=== PATIENT | male | born 1940 | race Caucasian/White ===

== ENCOUNTER 2017-04-09 09:37 | Inpatient (IN) | payer OTHER, MEDICARE ==
[~2017-04-09] VITALS: Ht 175.3 cm; Wt 85.3 kg
--- NOTE | 2017-04-09 09:57 | NUR ---
Pt BIB private Ambulance from [facility], reports pt on 5150 hold for [facility], was seeing hallucinations. Pt has no complaints, denies SI, HI, halucinations, but states he has generalized anger and is depressed.
[2017-04-09] MEDS ORDERED: SPIR25TA4 PO (11:13)
[2017-04-09] MEDS ORDERED: FINA5TAB3 PO (11:13)
[2017-04-09] MEDS ORDERED: CARB PO (11:13)
[2017-04-09] MEDS ORDERED: LEVO PO (11:13)
[2017-04-09] MEDS ORDERED: CARB-93 PO (11:13)
[2017-04-09] MEDS ORDERED: PRAM0.129 PO (11:13)
--- NOTE | 2017-04-09 11:50 | NUR ---
Gave report to Berto
[2017-04-09 13:00] VITALS: BP 131/60
[2017-04-09] MEDS ORDERED: LORAZEPAM 0.5 MG TABLET PO PRN (13:30)
[2017-04-09] MEDS ORDERED: MAGNESIUM HYDROXIDE 30 ML LIQUID UDC PO PRN (13:30)
[2017-04-09] MEDS ORDERED: ACETAMINOPHEN 325 MG TABLET PO PRN (13:30)
[2017-04-09] MEDS ORDERED: ZOLPIDEM 5 MG TABLET PO PRN (13:30)
[2017-04-09] MEDS ORDERED: MAG HYDROX/AL HYDROX/SIMETH 30 ML LIQUID UDC PO PRN (13:30)
[2017-04-09 16:00] VITALS: BP 158/80
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
[2017-04-09 20:37] VITALS: BP 125/67
[2017-04-09] MEDS: CARBIDOPA/LEVODOPA 25-100MG TABLET PO SCH (20:38)
[2017-04-10 07:30] VITALS: BP 139/77
[2017-04-10 08:00] LABS: BASOPHILS # (AUTO) 0.1 K/uL (0.0-8.0); BASOPHILS % (AUTO) 0.6 % (0.0-2.0); EOSINOPHILS # (AUTO) 0.1 K/uL (0.0-0.7); EOSINOPHILS % (AUTO) 1.6 % (0.0-7.0); HEMATOCRIT 41.1 % (36.7-47.1); HEMOGLOBIN 14.2 g/dL (12.5-16.3); LYMPHOCYTES # (AUTO) 1.3 K/uL (20.0-40.0); LYMPHOCYTES % (AUTO) 14.6 % (20.5-51.5); MEAN CORPUSCULAR HEMOGLOBIN 32.1 uug (23.8-33.4); MEAN CORPUSCULAR HGB CONC 35 g/dL (32.5-36.3); MONOCYTES # (AUTO) 0.6 K/uL (2.0-10.0); MONOCYTES % (AUTO) 6.5 % (0.0-11.0); NEUTROPHILS % (AUTO) 76.7 % (38.5-71.5); PLATELET COUNT (AUTO) 271 K/uL (152-348); RED BLOOD CELL COUNT(AUTO) 4.42 MIL/uL (4.06-5.63); WHITE BLOOD COUNT (AUTO) 9.2 K/uL (3.6-10.2)
[2017-04-10 08:12] LABS: THYROID STIMULATING HORMONE 4.094 mIU/mL (0.358-3.740)
[2017-04-10 08:31] LABS: ALANINE AMINOTRANSFERASE 19 U/L (16-63); ALKALINE PHOSPHATASE 33 U/L (50-136); ASPARTATE AMINOTRANSFERASE 40 U/L (15-37); BILIRUBIN,TOTAL 0.9 mg/dL (0.2-1.0); CARBON DIOXIDE 23 mmol/L (21-32); CHLORIDE 106 mmol/L (98-107); CREATININE 1.4 mg/dL (0.6-1.3); GLUCOSE 98 mg/dL (74-106); MAGNESIUM 2.5 mg/dL (1.8-2.4); PHOSPHOROUS 2.2 mg/dL (2.5-4.9); TOTAL PROTEIN, SERUM 7.1 g/dL (6.4-8.2); UREA NITROGEN, BLOOD 22 mg/dL (7-18)
[2017-04-10] MEDS ORDERED: PRAMIPEXOLE DI HCL 1.5 MG PO SCH (09:00)
[2017-04-10] MEDS: PRAMIPEXOLE 1 MG TABLET PO SCH ×3 (09:06→17:27)
[2017-04-10] MEDS: FINASTERIDE 5 MG TABLET PO SCH (09:07)
[2017-04-10] MEDS: CARBIDOPA/LEVODOPA 25-100MG TABLET PO SCH ×4 (09:07→20:43)
[2017-04-10] MEDS: SPIRONOLACTONE 25 MG TABLET PO SCH (09:07)
[2017-04-10 16:34] VITALS: BP 132/71
--- NOTE | 2017-04-10 20:00 | NUR ---
Pt received in the Day room watching TV, cooperative, pleasant on approach. Pt observed to be anxious, forgetful and suspicious. No agitation, no psychotic behavior noted, will continue to monitor closely.
[2017-04-10] MEDS: QUETIAPINE FUMARATE 25 MG TABLET PO SCH (20:43)
[2017-04-10] MEDS: ATORVASTATIN 10 MG TABLET PO SCH (20:43)
[2017-04-10 20:50] VITALS: BP 125/68
[2017-04-11] MEDS: LEVOTHYROXINE SODIUM 25 MCG TABLET PO SCH (07:00)
[2017-04-11 07:30] VITALS: BP 141/63
[2017-04-11] MEDS: PRAMIPEXOLE 1 MG TABLET PO SCH ×3 (09:03→17:42)
[2017-04-11] MEDS: SPIRONOLACTONE 25 MG TABLET PO SCH (09:03)
[2017-04-11] MEDS: CARBIDOPA/LEVODOPA 25-100MG TABLET PO SCH ×4 (09:03→20:17)
[2017-04-11] MEDS: FINASTERIDE 5 MG TABLET PO SCH (09:03)
--- NOTE | 2017-04-11 10:47 | NUR ---
Initial discharge instructions: Pt reports to reside at home with his [[address],[place],[address];[phone]].Per pt,he would like to return home with his .CHUCK will speak with Rita and confirm if the pt will be allowed to return home upon discharge.CHUCK will speak with pt,family, and MD regarding appropriate discharge plans.SW will form a safe and proper discharge.
--- NOTE | 2017-04-11 10:48 | NUR ---
UR Note: SW called Workgroup Leader, Quinten Canales ( ) with [facility] and left clinicals on confidential voicemail. Awaiting authorization for further requested days
[2017-04-11 15:39] VITALS: BP 126/67
--- NOTE | 2017-04-11 20:00 | NUR ---
PT RECEIVED IN THE DAY ROOM PLAYING CARD WITH REC THERAPIST AND ANOTHER PT, DENIES SI/HI/PAIN, SOMEWHAT SUSPICIOUS ABOUT HIS MEDICATIONS THOUGH COMPLIANT, WILL CONTINUE TO MONITOR CLOSELY.
[2017-04-11] MEDS: QUETIAPINE FUMARATE 25 MG TABLET PO SCH (20:17)
[2017-04-11] MEDS: ATORVASTATIN 10 MG TABLET PO SCH (20:17)
[2017-04-11 20:48] VITALS: BP 135/79
[2017-04-12] MEDS: LEVOTHYROXINE SODIUM 25 MCG TABLET PO SCH (07:00)
[2017-04-12 07:30] VITALS: BP 107/68
[2017-04-12] MEDS: FINASTERIDE 5 MG TABLET PO SCH (08:50)
[2017-04-12] MEDS: CARBIDOPA/LEVODOPA 25-100MG TABLET PO SCH ×2 (08:50→13:15)
[2017-04-12] MEDS: SPIRONOLACTONE 25 MG TABLET PO SCH (08:50)
[2017-04-12] MEDS: PRAMIPEXOLE 1 MG TABLET PO SCH ×2 (08:51→13:15)
--- NOTE | 2017-04-12 14:21 | NUR ---
DC Note: Patient will be discharged back home [[address], [place], [address]; [phone]] via private transportation at 4:00 pm. Patient's , Rita Putnam [phone] will be providing transportation back home. Rita is aware and agreeable with discharge plans. Patient is aware and agreeable with discharge plans. Patient will follow-up with ([facility]) [[address], [place] [address]; ] and (Psychiatrist) [[address], [place] [address]; ].
--- NOTE | 2017-04-12 16:13 | NUR ---
UR Note: CHUCK called Certified Teacher AssistantQuinten ( ) with [facility] and left discharge clinicals on confidential voicemail. Addendum: 04/12/17 at 1629 by LATONIA WOODS Quinten WOLFF called back with authorization # [id number]
--- NOTE | 2017-04-12 16:36 | NUR ---
PT WAS DISCHARGED, PICKED HIM UP TO TAKE HIM HOME IN PRIVATE VEHICLE. PT WAS DISCHARGED WITH ALL VALUABLES, EXIT CARE, AND TMS. PT WAS SENT WITH [facility] FOR PSYCH MEDS, AND THE MEDICAL MEDS WERE CALLED INTO [facility] ([phone], SPOKE WITH JONNIE MARTÍNEZ PHARMACIST). PT WAS IN STABLE CONDITION, DENIES SUICIDAL AND HOMICIDAL IDEATION. NO AGRESSION, COMPLIANT WITH MEDS AND CARE.
== END 2017-04-12 16:45 | disposition home or self-care (01) | DRG 885 ==
LOC: ER 09:37 → GPS 11:10
PROVIDERS: ADMIT Internal Medicine; ATTEND Psychiatry & Neurology Psychiatry
DX: F29 Unspecified psychosis not due to a substance or known physiological condition (principal); F02.81 Dementia in other diseases classified elsewhere, unspecified severity, with behavioral disturbance; N17.0 Acute kidney failure with tubular necrosis; D68.59 Other primary thrombophilia; E83.39 Other disorders of phosphorus metabolism; G20 Parkinson's disease; R45.851 Suicidal ideations; D72.829 Elevated white blood cell count, unspecified; E03.9 Hypothyroidism, unspecified; E78.5 Hyperlipidemia, unspecified; F41.0 Panic disorder [episodic paroxysmal anxiety]; M19.90 Unspecified osteoarthritis, unspecified site; N40.0 Benign prostatic hyperplasia without lower urinary tract symptoms; M48.02 Spinal stenosis, cervical region; F32.9 Major depressive disorder, single episode, unspecified; Z88.0 Allergy status to penicillin; Z91.81 History of falling; I44.7 Left bundle-branch block, unspecified; I44.0 Atrioventricular block, first degree; Z79.899 Other long term (current) drug therapy
CPT/HCPCS: 36415; 71010; 82306; 83735; 84100; 84443; 85025; A4663